=== PATIENT | female | born 1950 | race Caucasian/White ===

== ENCOUNTER 2024-06-06 13:05 | Emergency (ER) | payer MEDICARE, BC ==
[~2024-06-06] VITALS: Ht 170.2 cm; Wt 65.5 kg
[2024-06-06] MEDS: KETOROLAC 30 MG/ML 1ML VIAL IM ONE (15:43)
[2024-06-06] MEDS: PERCOCET 5MG/325MG TAB PO ONE (17:01)
[2024-06-06] MEDS ORDERED: PERC5TAB12 PO (17:47)
[2024-06-06 19:11] VITALS: BP 199/90; TEMP 96.7; O2SAT 97
[2024-06-09] MEDS ORDERED: ATOR1TAB19 PO (10:06)
[2024-06-09] MEDS ORDERED: HYDR-3490 PO (10:06)
[2024-06-09] MEDS ORDERED: OXYC1TAB23 (10:06)
[2024-06-09] MEDS ORDERED: TRAM200T20 PO (10:06)
[2024-06-09] MEDS ORDERED: GABA-1172 PO (10:10)
[2024-06-09] MEDS ORDERED: QUET50TA4 PO (10:10)
== END 2024-06-06 19:22 | disposition home or self-care (01) ==
LOC: EDBD 13:05 → M ED 13:05
DX: S52.532A Colles' fracture of left radius, initial encounter for closed fracture (principal); Y92.019 Unspecified place in single-family (private) house as the place of occurrence of the external cause; Y93.9 Activity, unspecified; Y99.9 Unspecified external cause status; W00.0XXA Fall on same level due to ice and snow, initial encounter; I10 Essential (primary) hypertension; E78.5 Hyperlipidemia, unspecified; Z79.899 Other long term (current) drug therapy
CPT/HCPCS: 29125; 73110; 96372; 99284; J1885

== ENCOUNTER 2024-06-10 09:14 | Day surgery (SDC) | payer MEDICARE, BC ==
[~2024-06-10] VITALS: Ht 170.2 cm; Wt 69.3 kg
[~2024-06-10 09:14] MED LIST: ATOR1TAB19 PO; GABA-1172 PO; HYDR-3490 PO; OXYC1TAB23; PERC5TAB12 PO; QUET50TA4 PO; TRAM200T20 PO
[2024-06-10] MEDS: LR 1,000 ML IV SCH (10:21)
[2024-06-10] MEDS: MIDAZOLAM INJ 2MG/2ML VIAL IV PRN (10:36)
[2024-06-10] MEDS: fentaNYL 100 MCG/2 ML INJECTION IV PRN (10:36)
[2024-06-10] MEDS: LIDOCAINE 1% SDV 5ML VIAL PN ONE (10:41)
[2024-06-10] MEDS: dexAMETHasone 10MG/1ML VIAL PRES.FREE PN ONE (10:42)
[2024-06-10] MEDS: ROPIvacaine 0.5% 30ML VIAL PN ONE (10:42)
[2024-06-10] MEDS ORDERED: propofoL 200 MG/20 ML VIAL As Ordered ONE (10:44)
[2024-06-10] MEDS ORDERED: ONDANSETRON 4MG 2ML VIAL As Ordered ONE (10:44)
[2024-06-10] MEDS ORDERED: LIDOCAINE 2% 100MG/5ML SDV (FOR ANES.) As Ordered ONE (10:44)
[2024-06-10] MEDS ORDERED: fentaNYL 100 MCG/2 ML INJECTION As Ordered ONE (12:14)
[2024-06-10] MEDS: ceFAZolin 2 GM/D5W 50 ML IV BAG As Ordered ONE (12:56)
[2024-06-10] MEDS ORDERED: ACETAMINOPHEN 1000MG/100ML IV BAG As Ordered ONE (12:59)
[2024-06-10] MEDS: ceFAZolin SOD 2 GM in IV 1 EA IV ONE (13:23)
[2024-06-10] MEDS: BACITRACIN OINTMENT 30GM TUBE As Ordered ONE (13:43)
[2024-06-10] MEDS ORDERED: oxyCODONE 5MG TAB PO PRN (14:00)
[2024-06-10] MEDS ORDERED: ONDANSETRON 4MG 2ML VIAL IV PRN (14:00)
[2024-06-10] MEDS ORDERED: MORPHINE 2 MG/ML 1ML VIAL IV PRN (14:00)
[2024-06-10] MEDS ORDERED: fentaNYL 100 MCG/2 ML INJECTION IV PRN (14:00)
[2024-06-10 15:08] VITALS: BP 167/80; TEMP 98.4; O2SAT 95
== END 2024-06-10 15:22 | disposition home or self-care (01) ==
LOC: M SDC 09:14
PROVIDERS: ATTEND Orthopaedic Surgery Hand Surgery
DX: S52.552A Other extraarticular fracture of lower end of left radius, initial encounter for closed fracture (principal); W00.0XXA Fall on same level due to ice and snow, initial encounter; Y92.89 Other specified places as the place of occurrence of the external cause; Y93.89 Activity, other specified; Y99.9 Unspecified external cause status; Z88.1 Allergy status to other antibiotic agents; Z79.899 Other long term (current) drug therapy
CPT/HCPCS: 25607; 76000; 93005; C1713; J0131; J0690; J1100; J2250; J2405; J2795; J3010

== ENCOUNTER → 2024-06-22 | Outpatient (CLI) | payer MEDICARE, BC | LOC: M SOG 07:54 | PROVIDERS: ATTEND Physician Assistant | DX: M25.532 Pain in left wrist (principal) ==

== ENCOUNTER → 2024-07-13 | Outpatient (CLI) | payer MEDICARE, BC | LOC: M SOG 08:01 | PROVIDERS: ATTEND Physician Assistant | DX: M25.532 Pain in left wrist (principal) ==

== ENCOUNTER → 2024-08-17 | Outpatient (CLI) | payer MEDICARE, BC | LOC: M SOG 08:01 | PROVIDERS: ATTEND Physician Assistant | DX: M25.532 Pain in left wrist (principal) ==